=== PATIENT | female | born 1975 | race Caucasian/White ===

== ENCOUNTER 2020-08-28 12:05 | Emergency (ER) | payer OTHER ==
[~2020-08-28] VITALS: Ht 157.5 cm; Wt 86.2 kg
[2020-08-28] MEDS ORDERED: XANAX 0.5 MG0.5 MG PO (12:13)
[2020-08-28] MEDS ORDERED: AMBIEN5 MG PO (12:13)
[2020-08-28 12:40] LABS: ABSOLUTE EOSINOPHILS 0.2 thou/uL (0.0-0.7); ABSOLUTE LYMPHOCYTES 1.7 thou/uL (0.8-5.3); ABSOLUTE MONOCYTES 0.5 thou/uL (0.0-1.2); ABSOLUTE NEUTROPHILS 2.9 thou/uL (1.6-8.1); BASOPHILS 0.5 %; EOSINOPHILS 3.6 %; HEMATOCRIT 38.9 % (37.0-47.0); HEMOGLOBIN 13.3 gm/dL (12.0-15.0); LYMPHOCYTES 32.2 %; MCH 30.1 pg (26.0-34.0); MCHC 34.3 g/dL (28.0-37.0); MCV 87.8 fL (80.0-100.0); MONOCYTES 9.6 %; MPV 8.1 fl. (7.2-11.1); NUCLEATED RBCS 0 /100WBC; PLATELET COUNT* 271 thou/uL (150-400); POLYS 54.1 %; RBC 4.43 mil/uL (4.20-5.00); RDW-CV 12.4 % (10.5-14.5); WBC 5.4 thou/uL (4.0-11.0)
[2020-08-28 12:47] LABS: URINE BILIRUBIN NEGATIVE (Negative); URINE BLOOD 3+ (Negative); URINE CLARITY CLEAR; URINE COLOR YELLOW; URINE GLUCOSE-RANDOM NEGATIVE (Negative); URINE KETONES NEGATIVE (Negative); URINE LEUKOCYTES NEGATIVE (Negative); URINE NITRITE NEGATIVE (Negative); URINE PROTEIN NEGATIVE (Negative); URINE UROBILINOGEN 0.2 E.U./dl (0.2-1.0)
[2020-08-28 12:48] LABS: CALCIUM 9.9 mg/dL (8.5-10.1); CREATININE 0.9 mg/dL (0.6-1.3); POTASSIUM 3.8 mmol/L (3.5-5.1)
[2020-08-28 12:58] LABS: BACTERIA 1-9 Few /HPF (None Seen); CASTS None Seen /LPF (None Seen); CRYSTALS None Seen /LPF (None Seen); MUCUS 0-3 Light strn/LPF (None Seen); SQUAMOUS 0-3 Few /LPF (0-3); URINE RBC 3-10 Few /HPF (0-2); URINE WBC 0-5 Rare /HPF (0-5)
[2020-08-28 13:03] LABS: ALBUMIN 3.6 g/dL (3.4-5.0); TOTAL BILIRUBIN 0.3 mg/dL (<0.1-1.0); TOTAL PROTEIN 7.6 g/dL (6.4-8.2)
[2020-08-28 13:43] VITALS: BP 119/66
--- NOTE | 2020-08-28 15:12 | EKG ---
[place] [address] ELECTROCARDIOGRAM REPORT Name: ERNESTOGLENN Room: [facility]#: [id number] Admission: 08/28/20 Attend Phys: Discharge: 08/28/20 Date of : 75 Date of Service: 08/28/20 1211 Report #: [id number] THIS REPORT FOR: //name// [facility] ED Test Date: 2020-08-28 Test Time: 12:11:31 Pat Name: GLENN OROZCO Department: Room: Gender: F Broadcast Journalist: IALNA : 1975 Requested By: Bertin Lucero Order Number: [id number] MD: Phan Shrestha Measurements Intervals [place] Rate: 80 P: 37 AK: 189 QRS: 54 QRSD: 70 T: 35 QT: 337 QTc: 389 Interpretive Statements Sinus rhythm Low voltage, precordial leads No previous ECG available for comparison Electronically Signed On 08-28-2020 15:12:19 CDT by Phan Shrestha [email or web address] <ELECTRONICALLY SIGNED> By: Flavio Shrestha MD, [facility] 08/28/20 1512 121 121 Flavio Shrestha MD, [facility] /EPI
== END 2020-08-28 13:44 | disposition home or self-care (01) ==
LOC: M.ERS 12:05
PROVIDERS: Nurse Practitioner
DX: R07.89 Other chest pain (principal); F41.9 Anxiety disorder, unspecified; Z79.899 Other long term (current) drug therapy; Z88.8 Allergy status to other drugs, medicaments and biological substances

== ENCOUNTER 2020-12-26 18:32 | Emergency (ER) | payer OTHER ==
[~2020-12-26] VITALS: Ht 157.5 cm; Wt 85.3 kg
[~2020-12-26 18:32] MED LIST: AMBIEN5 MG PO; XANAX 0.5 MG0.5 MG PO
[2020-12-26 18:41] VITALS: BP 136/86
[2020-12-26] MEDS ORDERED: XANAX 0.5 MG0.5 MG PO (20:46)
[2020-12-26] MEDS ORDERED: PROAIR HFA8.5 GM INH (20:46)
[2020-12-26] MEDS ORDERED: PREDNISONE 20 M20 M1 PO (20:46)
[2020-12-26] MEDS ORDERED: ZPAK PO (21:09)
== END 2020-12-26 21:14 | disposition home or self-care (01) ==
LOC: M.ERS 18:32
DX: U07.1 COVID-19 (principal); J18.9 Pneumonia, unspecified organism; F41.9 Anxiety disorder, unspecified; Z88.8 Allergy status to other drugs, medicaments and biological substances

== ENCOUNTER 2020-12-29 09:04 | Emergency (ER) | payer OTHER ==
[~2020-12-29] VITALS: Ht 157.5 cm; Wt 81.7 kg
[~2020-12-29 09:04] MED LIST changes: +PREDNISONE 20 M20 M1 PO; +PROAIR HFA8.5 GM INH; +ZPAK PO
[2020-12-29] MEDS ORDERED: XANAX 0.5 MG0.5 MG PO (10:37)
[2020-12-29 10:45] VITALS: BP 128/75
== END 2020-12-29 10:46 | disposition home or self-care (01) ==
LOC: M.ERS 09:04
DX: U07.1 COVID-19 (principal); R05 Cough; F41.9 Anxiety disorder, unspecified; Z79.899 Other long term (current) drug therapy; Z79.51 Long term (current) use of inhaled steroids; Z88.8 Allergy status to other drugs, medicaments and biological substances